=== PATIENT | female | born 1960 | race Caucasian/White ===

== ENCOUNTER 2023-08-03 13:32 | Emergency (ER) | payer MEDICAID ==
[~2023-08-03] VITALS: Ht 154.9 cm; Wt 120.7 kg
[2023-08-03 14:00] VITALS: BP_SYST 161; PULSE 81; RESP 18; TEMP 98.3; O2SAT 94
[2023-08-03] MEDS: IBUPROFEN 800 MG TABLET PO ONE (15:51)
[2023-08-03] MEDS ORDERED: HYDR-3917 PO (15:52)
[2023-08-03] MEDS ORDERED: IBUP-1971 PO (15:52)
[2023-08-03] MEDS: cephALEXin 500 MG CAPSULE PO ONE (15:54)
[2023-08-03] MEDS: HYDROcodone/ACETAMIN 10-325 MG TAB PO ONE (15:54)
[2023-08-03] MEDS ORDERED: CEPH250C PO (15:55)
[2023-08-03 16:25] VITALS: BP_SYST 161; PULSE 81; RESP 18; TEMP 98.3; O2SAT 94
== END 2023-08-03 16:24 | disposition home or self-care (01) ==
LOC: SED 13:32
DX: S63.591A Other specified sprain of right wrist, initial encounter (principal); Z90.49 Acquired absence of other specified parts of digestive tract; Z79.899 Other long term (current) drug therapy; Z79.2 Long term (current) use of antibiotics; X58.XXXA Exposure to other specified factors, initial encounter; Y93.89 Activity, other specified; Y92.89 Other specified places as the place of occurrence of the external cause; Y99.8 Other external cause status
CPT/HCPCS: 99284